=== PATIENT | male | born 1965 ===

== ENCOUNTER 2019-04-30 16:38 | Outpatient (CLI) | payer OTHER ==
[~2019-04-30] VITALS: Ht 172.7 cm; Wt 102.1 kg
== END 2019-04-30 17:00 | disposition home or self-care (01) ==
LOC: OFIC 805 16:38
DX: H93.11 Tinnitus, right ear (principal); M54.2 Cervicalgia

== ENCOUNTER 2019-05-28 14:47 | Outpatient (CLI) | payer OTHER ==
[~2019-05-28] VITALS: Ht 152.4 cm; Wt 102.1 kg
== END 2019-05-28 15:10 | disposition home or self-care (01) ==
LOC: OFIC 805 14:47
DX: H93.11 Tinnitus, right ear (principal); M54.2 Cervicalgia